=== PATIENT | female | born 1965 | race Caucasian/White ===

== ENCOUNTER 2021-06-10 01:35 | Day surgery (SDC) | payer OTHER, SELFPAY ==
[2021-06-03 14:49] VITALS: BMI 26.5
[2021-06-10 07:32] VITALS: BP 130/8; PULSE 80; RESP 18; TEMP 36.1; O2SAT 100; BMI 26.8
[2021-06-10] MEDS: LACTATED RINGERS 1,000 ML 150 ML IV CONT (07:50)
--- NOTE | 2021-06-10 08:16 | P.PNAN_ITS ---
Anes - Initial Pre Proc Eval Procedure: Operation Date: 06/10/21 08:30 Proposed Procedures p Colonoscopy - Mukul Esparza MD Date/Time: 06/10/21 08:16 Surgeon: Mukul Esparza MD Pre Op Diagnosis: tortuous colon Patient Data Age: 55 Gender: F Height: 1.78 m Weight: 84.8 kg Last Vital Signs Temp 36.1 C L 06/10/21 07:32 Pulse 80 06/10/21 07:32 Resp 18 06/10/21 07:32 BP 130/8 L 06/10/21 07:32 Pulse Ox 100 06/10/21 07:32 Allergies Allergy/AdvReac Type Severity Reaction Status Date / Time morphine Allergy Hives Verified 06/10/21 07:38 Penicillins Allergy Rash Verified 06/10/21 07:38 Home Medications Medication Instructions Recorded Confirmed Type Adults Multivitamin 1 tablet PO DAILY 06/03/21 06/10/21 History estradiol 1 mg PO DAILY 06/03/21 06/10/21 History levothyroxine 25 mcg PO DAILY 06/03/21 06/10/21 History Patient hx anesthesia problems: none Family hx anesthesia problems: none Results Review: All pre-operative results and documents have been reviewed as part of the pre-operative evaluation. FORMERLY [facility] Past Medical History Medical History Hypothyroid Ovarian cancer Social History Social History Smoking status: Never smoker Alcohol intake: current Drinks per week: 3 Substance use type: does not use Living arrangements: with family Spiritual care concerns: No Anes - Eval Final PreProcedure Day of Procedure 06/10/21 08:16 Patient weight: normal Heart: regular rate and rhythm Lungs: clear to auscultation Airway: Mallampati scale class 1 Neurological: alert and oriented Last oral intake: >/= 8 hours ASA classification: II Emergent: no Anesthetic plan: proceed Anesthesia type and monitoring: general GIVS and standard monitoring Results Review: All pre-operative results and documents have been reviewed as part of the pre-operative evaluation. Informed Consent: The patient's anesthetic plan and its attendant risks and benefits were discussed with the patient/family/POA. Questions were solicited and answers provided to the satisfaction of the patient/family/POA.
--- NOTE | 2021-06-10 08:20 | PM.HPGS ---
History of Present Illness History of Present Illness Consent: Risks, benefits, and alternatives have been discussed and questions answered. Patient agrees to proceed with procedure. Chief complaint: tortuous colon Narrative: Amanda Green is a 55 year old female here for screening colonoscopy, she was getting colonoscopies every 5 years because previous polyp, last colonoscopy in 2019 with poor prep, also tortuous colon in rectosigmoid anastomosis (she had partial colon resection when had ovarian cancer ~ 20 years ago), she was advised by her GI doctor to repeat another colonoscopy in 1 year. Review of Systems Constitutional: Constitutional: Denies headache(s) and Denies weakness Eyes: Eyes: Denies blurry vision ENT: Reports Normal hearing present, Denies headache(s) and Denies neck pain Cardiovascular: Cardiovascular: Denies chest pain and Denies dyspnea Respiratory: Respiratory: Denies dyspnea Gastrointestinal: Gastrointestinal: Reports no additional gastrointestinal complaints Genitourinary: Genitourinary: Denies dysuria Musculoskeletal: Musculoskeletal: Denies neck pain Integumentary/Breasts: Skin/Breast: Denies dry skin Neurologic: Reports Normal hearing present, Denies headache(s) and Denies weakness Psychiatric: Psychiatric: Denies anxiety Endocrine: Endocrine: Denies change in body appearance Hematologic/Lymphatic: Hematologic/Lymphatic: Denies easy bleeding Allergic/Immunologic: Allergic/Immunologic: Denies urticaria PMFSH Past Medical History Medical History (Updated 06/10/21 @ 08:21 by Mukul Esparza MD) Colon cancer screening Hypothyroid Ovarian cancer Social History Social History Smoking status: Never smoker Alcohol intake: current Drinks per week: 3 Substance use type: does not use Living arrangements: with family Spiritual care concerns: No Meds Home Medications and Allergies Home Medications Medication Instructions Recorded Confirmed Type Adults Multivitamin 1 tablet PO DAILY 06/03/21 06/10/21 History estradiol 1 mg PO DAILY 06/03/21 06/10/21 History levothyroxine 25 mcg PO DAILY 06/03/21 06/10/21 History Allergies Allergy/AdvReac Type Severity Reaction Status Date / Time morphine Allergy Hives Verified 06/10/21 07:38 Penicillins Allergy Rash Verified 06/10/21 07:38 Vital Signs Vital Signs - 24 hr 06/10/21 07:32 Temperature 97.0 F L Pulse Rate 80 Respiratory Rate 18 Blood Pressure 130/8 L Pulse Oximetry 100 Exam Const: General: comfortable and no acute distress HENMT: General nose exam: Normal nares present Eyes: General: appearance normal, both eyes and all related structures Neck: Neck: no JVD Resp: Auscultation: clear to auscultation bilaterally Cardio: Rate: regular rate Rhythm: regular rhythm GI: Inspection: non-distended GI Palp: Yes Soft to palpation Skin: General skin exam: normal color Neuro: General: gait normal Speech: normal speech Extrem: General: normal to inspection Psych: Mental Status: mental status grossly normal Assessment and Plan Assessment and plan (1) Colon cancer screening: Code(s): Z12.11 - Encounter for screening for malignant neoplasm of colon Status: Acute Assessment and Plan: colonoscopy
[2021-06-10 08:45] VITALS: BP 109/56; PULSE 79; RESP 17; O2SAT 100
[2021-06-10 08:55] VITALS: BP 118/78; PULSE 62; RESP 15; O2SAT 100
[2021-06-10 09:05] VITALS: BP 120/84; PULSE 61; RESP 12; O2SAT 100
== END 2021-06-10 09:15 | disposition home or self-care (01) ==
PROVIDERS: PCP Internal Medicine; Visit Provider Internal Medicine Gastroenterology
PROC: 0DJD8ZZ Inspection of Lower Intestinal Tract, Via Natural or Artificial Opening Endoscopic (ICD-10-PCS; CPT 45378; principal; 2021-06-10 08:30)
DX: Z09 Encounter for follow-up examination after completed treatment for conditions other than malignant neoplasm (principal); K64.8 Other hemorrhoids; Z98.0 Intestinal bypass and anastomosis status; Z90.49 Acquired absence of other specified parts of digestive tract; Z85.43 Personal history of malignant neoplasm of ovary; Z86.010 Personal history of colon polyps; E03.9 Hypothyroidism, unspecified
CPT/HCPCS: 45378; J2704; J7120

== ENCOUNTER → 2021-07-16 11:19 | Outpatient (CLI) | payer OTHER, SELFPAY ==
--- NOTE | ~2021-07-16 | MM_ITS ---
EXAMINATION: MM screening eliza BI w kostas HISTORY: Screening TECHNIQUE: Craniocaudal and mediolateral oblique 3-D tomosynthesis images were obtained and synthetic 2-D images were generated. CAD analysis was submitted and interpreted. COMPARISON: No prior mammogram is available for comparison at this institution. BREAST PARENCHYMAL COMPOSITION: The breasts are almost entirely fatty. FINDINGS: There is no evidence of suspicious mass, calcification, or architectural distortion to sugg est malignancy in either breast. There has been no suspicious interval change. IMPRESSION: 1. No mammographic evidence of malignancy. 2. Recommend routine screening mammography in one year. BI-RADS Category 1: Negative Reviewed, dictated and finalized at location [facility]. [employer]
== END ==
PROVIDERS: PCP Internal Medicine; Visit Provider Internal Medicine
DX: Z12.31 Encounter for screening mammogram for malignant neoplasm of breast (principal)
CPT/HCPCS: 77063; 77067

== ENCOUNTER 2022-08-19 08:39 | Emergency (ER) | payer OTHER, SELFPAY ==
[2022-08-19 08:59] VITALS: BP 130/87; PULSE 71; RESP 16; TEMP 36.6; O2SAT 100
--- NOTE | 2022-08-19 09:16 | ED.FEMALEGU ---
HPI - Female Genitourinary General Chief complaint: Urogenital-Female Stated complaint: BLOOD IN URINE Time Seen by Provider: 08/19/22 09:16 Source: patient, RN notes reviewed and old records reviewed Mode of arrival: ambulatory Limitations: no limitations History of Present Illness HPI Narrative: 56 year old female who presents to [facility] care with complaints of urinary tract infection symptoms which include frequency,urgency, burning and pain with urination since with also blood noted in her urine. Patient reports some suprapubic pain and pain with urination and burning. Patient reports that she completed Macrobid recently the last of July for UTI. Patient denies any vaginal discharge or any vaginal itching. Patient denies any concern for STD's MD elicited complaint: UTI Pertinent past history: other (UTI) Onset (ago): day(s) (3) Severity scale (1-10): 8 Quality of pain: sharp and burning Urinary symptoms: Dysuria, Urgency, Frequency and Hematuria Related Data Home Medications Medication Instructions Recorded Confirmed Adults Multivitamin 1 tablet PO DAILY 06/03/21 08/19/22 estradiol 1 mg tablet 1 mg PO DAILY 06/03/21 08/19/22 levothyroxine 25 mcg tablet 25 mcg PO DAILY 06/03/21 08/19/22 Allergies Allergy/AdvReac Type Severity Reaction Status Date / Time morphine Allergy Hives Verified 08/19/22 08:57 Penicillins Allergy Rash Verified 08/19/22 08:57 Review of Systems Review of Systems: CONSTITUTIONAL: Denies fever, chills, or sweats. CARDIOVASCULAR: Denies chest pain, palpitations, or edema. RESPIRATORY: Denies cough or dyspnea. GASTROINTESTINAL:Reports suprapubic abdominal discomfort, denies, nausea, vomiting, or diarrhea. GENITOURINARY: Reports dysuria, frequency, urgency Denies flank pain positive for hematuria. SKIN: Denies rash or itching. MUSCULOSKELETAL: Denies back pain or myalgia. Denies CVA tenderness NEUROLOGIC: Denies headache All systems reviewed & are unremarkable except as noted in HPI and below PMFSH Past Medical History Medical History (Updated 08/20/22 @ 19:15 by Fior Gaitan NP) Colon cancer screening Hypothyroid Ovarian cancer UTI (urinary tract infection) Surgical History Surgical History (Updated 08/20/22 @ 19:11 by Fior Gaitan NP) History of hysterectomy History of intestinal surgery colectomy related to ovarian cancer adhesions and tortuous colon Social History Social History (Updated 08/19/22 @ 09:20 by Fior Gaitan NP) Smoking status: Never smoker Alcohol intake: current Drinks per week: 3 Substance use type: does not use Living arrangements: with family Gender identity (if verbalized by the patient): Female Spiritual care concerns: No Comments At time of signature, agree with nursing past medical, surgical, social and family history. There is no relevant family history pertinent to the presenting complaint Exam Narrative: GENERAL: Well-appearing, well-nourished, and in no acute distress. HEAD: Normocephalic, atraumatic. NECK: Supple. no lymphadenopathy CHEST: Clear to auscultation. No respiratory distress.SAO2 100% on room air HEART: Regular rate and rhythm. No murmur heard. Normal peripheral pulses. ABDOMEN: Soft, tender over suprapubic area, nondistended, normal active bowel sounds. No CVA tenderness, burning and pain with urination, urgency and frequency of urine. EXTREMITIES: Normal range of motion. No edema. SKIN: Warm, dry, no rash. NEURO: No focal deficits. Alert and oriented x3. Course Course Emergency Course: Patient is aware of diagnosis, understands and agrees to treatment plan.? Anticipatory guidance given.? Patient agrees to follow-up as directed and is aware of reasons to seek care at the emergency department. Portions of this record may have been created with voice recognition software Level of Care: Express Care Visit Vital Signs Vital signs: Vital Signs Temperature 36.6 C 08/19/22 08:59 Pulse R
== END 2022-08-19 09:36 | disposition home or self-care (01) ==
PROVIDERS: Emergency Provider Registered Nurse; PCP Internal Medicine
DX: N39.0 Urinary tract infection, site not specified (principal); E03.9 Hypothyroidism, unspecified; Z85.43 Personal history of malignant neoplasm of ovary
CPT/HCPCS: 81003; 87077; 87086; 87186; 99213; G0463

== ENCOUNTER 2022-08-24 13:19 | Emergency (ER) | payer OTHER, SELFPAY ==
--- NOTE | 2022-08-24 13:32 | ED.CHESTPAIN ---
HPI - Chest Pain General Chief Complaint: Arrhythmia/Palpitations Stated Complaint: UTI SYMPTOMS Time Seen by Provider: 08/24/22 13:35 Source: patient Mode of arrival: ambulatory Limitations: no limitations History of Present Illness HPI narrative: 56-year-old female with hx ovarian cancer presented for complaint of heart racing, fatigue, headache, feeling hot and nauseated. Onset last night. Symptoms were worse this morning, she left work and went home to take a nap. Denies sob, wheezing, vomiting. Patient is currently completing Bactrim for UTI. States urinary symptoms are improved. Related Data Home Medications Medication Instructions Recorded Confirmed Adults Multivitamin 1 tablet PO DAILY 06/03/21 08/19/22 estradiol 1 mg tablet 1 mg PO DAILY 06/03/21 08/19/22 levothyroxine 25 mcg tablet 25 mcg PO DAILY 06/03/21 08/19/22 Allergies Allergy/AdvReac Type Severity Reaction Status Date / Time morphine Allergy Hives Verified 08/24/22 14:10 Penicillins Allergy Rash Verified 08/24/22 14:10 Review of Systems Review of Systems: CONSTITUTIONAL: Endorses fatigue and fever; Denies body aches EYES: Denies visual changes, redness, or discharge. ENT: Denies rhinorrhea, congestion, sore throat, or otalgia. CARDIOVASCULAR: Reports palpitations Denies chest pain or edema. RESPIRATORY: Denies cough or dyspnea. GASTROINTESTINAL: Denies abdominal pain, vomiting, or diarrhea. GENITOURINARY: Denies dysuria or hematuria. SKIN: Denies rash, itching, or wounds. MUSCULOSKELETAL: Denies back pain, joint pain, or myalgia. NEUROLOGIC: Denies numbness, tingling, or weakness. All systems reviewed & are unremarkable except as noted in HPI and below PMFSH Past Medical History Medical History Colon cancer screening Hypothyroid Ovarian cancer UTI (urinary tract infection) Surgical History Surgical History History of hysterectomy History of intestinal surgery colectomy related to ovarian cancer adhesions and tortuous colon Social History Social History Smoking status: Never smoker Alcohol intake: current Drinks per week: 3 Substance use type: does not use Living arrangements: with family Gender identity (if verbalized by the patient): Female Spiritual care concerns: No Comments At time of signature, I have reviewed and agree with nursing past medical, surgical, social and family history unless otherwise noted. Please see nursing chart for further information. There is no relevant family history pertinent to the presenting complaint Exam Narrative: GENERAL: mildly ill-appearing, in no acute distress. EYES: EOMI. No redness or drainage. Conjunctivae normal. ENT: Mucous membranes pink and moist. No rhinorrhea. TMs normal bilaterally. Throat normal. Uvula midline. NECK: Normal AROM. Supple. No lymphadenopathy. CHEST: No respiratory distress. Clear to auscultation. HEART: Tachycardic, Regularly irregular. No murmur appreciated. ABDOMEN: Soft, nontender, nondistended, normal active bowel sounds. MUSCULOSKELETAL: No bony tenderness. EXTREMITIES: Normal range of motion. No edema. SKIN: Hot, dry, no rash. Capillary refill normal. Normal skin turgor. NEURO: No focal deficits. Alert and oriented x3. Gait steady. PSYCH: Normal affect. Course Course Emergency Course: Patient is aware of diagnosis, understands and agrees to treatment plan. Anticipatory guidance given. Portions of this record may have been created with voice recognition software Level of Care: Express Care Visit Vital Signs Vital signs: Vital Signs Temperature 99.4 F 08/24/22 13:39 Pulse Rate 169 H 08/24/22 13:39 Respiratory Rate 16 08/24/22 13:39 Blood Pressure 114/89 08/24/22 13:39 Pulse Oximetry 99 08/24/22 13:39 Temperature 99.4 F 08/24/22 1
--- NOTE | 2022-08-24 13:38 | ECG_ITS ---
Measurements Intervals [place] Rate: 166 P: 193 UT: 84 QRS: -66 QRSD: 103 T: 57 QT: 294 QTc: 490 Interpretive Statements SUPRAVENTRICULAR TACHYCARDIA LEFT ANTERIOR FASCICULAR BLOCK NONSPECIFIC ST ABNORMALITY ABNORMAL ECG COMPARED TO ECG 08/24/2022 14:07:13 NO SIGNIFICANT CHANGE Electronically Signed On 08-25-2022 16:28:05 CDT by Prakash Vidal M.D.
[2022-08-24 13:39] VITALS: BP 114/89; PULSE 169; RESP 16; TEMP 37.4; O2SAT 99
[2022-08-24 13:45] VITALS: BP 139/97; PULSE 167; RESP 20
[2022-08-24 13:55] VITALS: BP 117/88; PULSE 184; RESP 16; O2SAT 97
[2022-08-24 13:58] VITALS: BP 122/95; PULSE 184; RESP 16; O2SAT 96
--- NOTE | 2022-08-24 14:09 | ECG_ITS ---
Measurements Intervals [place] Rate: 158 P: [place]: 0 QRS: -53 QRSD: 104 T: 49 QT: 318 QTc: 516 Interpretive Statements SUPRAVENTRICULAR TACHYCARDIA CONSIDER ATRIAL FLUTTER BASELINE ARTIFACT LEFT ANTERIOR FASCICULAR BLOCK NONSPECIFIC ST ABNORMALITY LOW-VOLTAGE QRS IN PRECORDIAL LEADS ABNORMAL ECG NO PREVIOUS ECG AVAILABLE FOR COMPARISON Electronically Signed On 08-25-2022 16:26:35 CDT by Prakash Vidal M.D.
== END 2022-08-24 14:08 | disposition short-term general hospital (02) ==
PROVIDERS: Emergency Provider Nurse Practitioner Family; PCP Internal Medicine
DX: I49.9 Cardiac arrhythmia, unspecified (principal); E03.9 Hypothyroidism, unspecified; Z85.43 Personal history of malignant neoplasm of ovary; I44.4 Left anterior fascicular block
CPT/HCPCS: 93005; 99213; G0463

== ENCOUNTER 2022-08-24 14:30 | Observation (INO) | payer OTHER, SELFPAY ==
[2022-08-24] VITALS (28 sets, daily range): BP systolic 101–131; BP diastolic 63–94; PULSE 74–168; RESP 13–20; TEMP 37.2–37.7; O2SAT 94–100
--- NOTE | ~2022-08-24 | XR_ITS ---
EXAMINATION: XR chest 1V portable 08/24/2022 15:15 INDICATION: Chest palpitations PROCEDURE: AP portable chest COMPARISON: No prior studies for comparison. FINDINGS: The lungs are clear. The cardiomediastinal silhouette is within normal limits. There are no pleural effusions. There is no pneumothorax suspected. IMPRESSION: 1: NO ACUTE CARDIOPULMONARY DISEASE. Reviewed, dictated and finalized at location L.
--- NOTE | ~2022-08-24 | CT_ITS ---
EXAMINATION: CT abdomen pelvis w con INDICATION: Abdominal pain TECHNIQUE: Computed tomographic images of the abdomen and pelvis were obtained after the administrati on of 100 cc of Omnipaque 350 intravenous contrast. The dose-length product (DLP) was 783.86 mGy-cm. Automated exposure control and iterative reconstruction technique were employed. COMPARISON: None available FINDINGS: Minimal dependent atelectasis is present in the lung bases. The heart size is normal. The g allbladder is surgically absent. The liver, spleen, pancreas, and adrenal glands are normal. The kidn eys are unremarkable. There are changes of pelvic lymph node dissection. A surgical anastomosis is pr esent in the rectum. No free intraperitoneal gas or evidence of bowel obstruction. A large volume of colonic stool is present. There is moderate to severe spondylosis of the mid and lower lumbar spine. IMPRESSION: 1. Constipation. Reviewed, dictated and finalized at location F. IMPRESSION: 1. Constipation.
--- NOTE | 2022-08-24 14:41 | ED.ARRPALP ---
HPI - Arrhythmia/Palpitations General Chief Complaint: Arrhythmia/Palpitations Stated Complaint: SVT FROM [facility] Time Seen by Provider: 08/24/22 14:31 Source: patient Mode of arrival: ambulatory Limitations: no limitations History of Present Illness HPI narrative: Patient is a 56-year-old female with a history of ovarian cancer in remission, status post colon resection, hypothyroidism, recurrent urinary tract infections presenting to the emergency department for evaluation of palpitations, nausea, rapid heart rate. Patient initially presented to an urgent care over the weekend for dysuria, frequency and was diagnosed with a urinary tract infection and placed on oral Bactrim. Patient has been taking that medication, last night continued with fever, chills, nausea. She reports resolution of dysuria. She states that she was having palpitations today thus presented back to the urgent care where she was diagnosed with atrial fibrillation with rapid ventricular response and EMS was contacted to bring the patient to the emergency department. In route, it was noted by EMS that the patient was in a rhythm of supraventricular tachycardia the patient was given 6 mg of adenosine without resolution of her symptoms and then given 12 mg of adenosine with reported cardioversion. Patient reports current nausea but denies chest pain. No history of coronary artery disease, heart problems in the past. No history of arrhythmia. Patient denies any lightheadedness, dizziness, shortness of breath. Related Data Home Medications Medication Instructions Recorded Confirmed Adults Multivitamin 1 tablet PO DAILY 06/03/21 08/24/22 estradiol 1 mg tablet 1 mg PO DAILY 06/03/21 08/24/22 levothyroxine 25 mcg tablet 25 mcg PO DAILY 06/03/21 08/24/22 Allergies Allergy/AdvReac Type Severity Reaction Status Date / Time morphine Allergy Hives Verified 08/24/22 14:46 Penicillins Allergy Rash Verified 08/24/22 14:46 Review of Systems Review of Systems: CONSTITUTIONAL: Reports fever and chills EYES: Denies visual changes, redness, or discharge. ENT: Denies rhinorrhea, congestion, sore throat, or otalgia. CARDIOVASCULAR: Denies chest pain, reports intermittent palpitations, denies edema RESPIRATORY: Denies cough or dyspnea. GASTROINTESTINAL: Denies abdominal pain, reports nausea, denies vomiting GENITOURINARY: Reports dysuria has resolved SKIN: Denies rash or itching. MUSCULOSKELETAL: Denies back pain, joint pain, or myalgia. NEUROLOGIC: Denies headache, numbness, or weakness. PSYCHIATRIC: Denies anxiety or depression. [facility] Past Medical History Medical History Colon cancer screening Hypothyroid Ovarian cancer UTI (urinary tract infection) Surgical History Surgical History History of hysterectomy History of intestinal surgery colectomy related to ovarian cancer adhesions and tortuous colon Social History Social History Smoking status: Never smoker Alcohol intake: current Drinks per week: 3 Substance use type: does not use Living arrangements: with family Gender identity (if verbalized by the patient): Female Spiritual care concerns: No Exam Narrative: GENERAL: Awake, alert, conversant HEAD: Normocephalic, atraumatic. EYES: PERRLA and EOMI. ENT: Nares clear, no rhinorrhea or epistaxis. Mucous membranes moist. NECK: Supple. CHEST: No respiratory distress, breathing even and non labored HEART: Tachycardic, 160s, irregularly irregular, does seem consistent with atrial fibrillation, no ST segment elevation, mild ST segment depression throughout leads I, 2 ABDOMEN:Non distended, non tender EXTREMITIES: Normal range of motion. No edema. SKIN: Warm, dry, no rash. NEURO:No focal deficits. Alert and oriented x3 Course Vital Signs Vital signs: Vital Signs Pulse Rate 168
[2022-08-24] MEDS: SODIUM CHLORIDE 0.9% IV 1,000 ML 999 ML IV CONT (14:44)
[2022-08-24] MEDS: ONDANSETRON INJ 4 MG/2 ML VIAL IV PUSH (14:45)
--- NOTE | 2022-08-24 14:46 | ECG_ITS ---
Measurements Intervals [place] Rate: 185 P: [place]: 0 QRS: -37 QRSD: 93 T: 31 QT: 241 QTc: 424 Interpretive Statements SUPRAVENTRICULAR TACHYCARDIA LEFT AXIS DEVIATION PATTERN CONSISTENT WITH PULMONARY DISEASE NONSPECIFIC ST ABNORMALITY LOW-VOLTAGE QRS IN PRECORDIAL LEADS ABNORMAL ECG COMPARED TO ECG 08/24/2022 13:37:27 NO SIGNIFICANT CHANGE Electronically Signed On 08-25-2022 16:27:07 CDT by Prakash Vidal M.D.
[2022-08-24 15:08] LABS: Basophils Percent Auto 0.3 % (0.2-1.2); Eosinophils Absolute Auto 0.1 K/mm3 (0-0.3); Eosinophils Percent Auto 4.1 % (0-4.4); Hematocrit 38.5 % (37.0-47.0); Hemoglobin 12.9 g/dL (12.0-15.0); Immature Granulocyte Absolute 0.02 K/mm3 (0.00-0.031); Immature Granulocyte Percent A 0.6 % (0-0.5); Lymphocytes Absolute Auto 0.22 K/mm3 (0.9-3.2); Lymphocytes Percent Auto 6.9 % (18.3-44.2); Mean Corpuscular HGB Conc 33.5 g/dl (32-36); Mean Corpuscular Volume 80.7 fl (80-100); Mean Platelet Volume 10.3 fl (7.4-10.4); Monocytes Absolute Auto 0.2 K/mm3 (0.1-0.6); Monocytes Percent Auto 7.2 % (2.6-8.5); Neutrophils Absolute Auto 2.6 K/mm3 (1.3-6.7); Neutrophils Percent Auto 80.9 % (45.5-73.1); Platelet Count Result 140 k/mm3 (150-375); Red Blood Count 4.77 M/mm3 (4.2-5.4); Red Cell Distribution Width 13.1 % (11.5-14.5); White Blood Count 3.2 K/mm3 (4.5-10.0)
[2022-08-24 15:17] LABS: Lactic Acid Reflex 0.9 mmol/L (0.7-2.0)
[2022-08-24 15:20] LABS: Alanine Aminotransferase 77 U/L (6-35); Alkaline Phosphatase 144 U/L (38-126); Anion Gap 8 mmol/L (8-16); Aspartate Amino Transferase 95 U/L (14-36); Bilirubin,Total 0.8 mg/dL (0.2-1.3); Blood Urea Nitrogen 12 mg/dL (7-17); Calcium 8.1 mg/dL (8.4-10.2); Carbon Dioxide 25 mmol/L (22-30); Chloride 94 mmol/L (98-107); Estimated CRCL calculation 65 ml/min; Estimated Glomerular Filt Rate > 60; Glucose 127 mg/dL (65-110); Potassium 3.7 mmol/L (3.4-5.0); Sodium 127 mmol/L (137-145)
[2022-08-24 15:37] LABS: NT Pro B Type Natriuretic Pept 284 pg/mL (19.9-100); Troponin I < 0.012 ng/mL (0.000-0.034)
[2022-08-24 15:55] LABS: Thyroid Stimulating Hormone 0.222 uIU/mL (0.465-4.680)
--- NOTE | 2022-08-24 17:53 | ECG_ITS ---
Measurements Intervals [place] Rate: 76 P: 16 [place]: 164 QRS: -30 QRSD: 109 T: 20 QT: 403 QTc: 454 Interpretive Statements SINUS RHYTHM LOW QRS VOLTAGE IN PRECORDIAL LEADS NONSPECIFIC ST ABNORMALITY BORDERLINE ECG COMPARED TO ECG 08/24/2022 14:35:16 SINUS RHYTHM NOW PRESENT Electronically Signed On 08-25-2022 16:35:22 CDT by Prakash Vidal M.D.
--- NOTE | 2022-08-24 18:28 | ECG_ITS ---
Measurements Intervals [place] Rate: 76 P: 16 [place]: 164 QRS: -30 QRSD: 109 T: 20 QT: 403 QTc: 454 Interpretive Statements SINUS RHYTHM LOW QRS VOLTAGE IN PRECORDIAL LEADS NONSPECIFIC ST ABNORMALITY BORDERLINE ECG COMPARED TO ECG 08/24/2022 14:35:16 SINUS RHYTHM NOW PRESENT Electronically Signed On 08-25-2022 16:35:03 CDT by Prakash Vidal M.D.
[2022-08-24 18:29] LABS: Appearance Urine Clear (Clear); Bilirubin Urine Negative (Negative); Blood Urine Negative (Negative); Color Urine Yellow (Yellow); Glucose Urine UA Negative (Negative); Ketones Urine 1+ mg/dL (Negative); Leukocyte Esterase Ur Negative LEU/UL (Negative); Nitrate Urine Negative (Negative); Protein Urine Negative (Negative); Specific Grav Ur 1.016 (1.001-1.035)
[2022-08-24 18:47] LABS: Add Urine Microscopic? NO
--- NOTE | 2022-08-24 20:19 | PM.IMHP ---
H&P: HPI History of Present Illness Date/Time: 08/24/22 20:19 Chief Complaint: Chest pressure Narrative: 56-year-old female with a past medical history of postmenopausal state, hypothyroidism and recent diagnosis of UTI who presented to the ER from urgent care via EMS due to SVT. The patient reports that back in July she was treated for UTI. She does not know what antibiotic she was placed on but on review of external med rec the appears patient was placed on nitrofurantoin. Her symptoms had resolved but then recurred and she went to urgent care on 08/19/2022. She was having symptoms with suprapubic pain, dysuria, frequency, urgency and hematuria. She was discharged home on Bactrim which she has been taking faithfully. She reported that her symptoms had improved until today. When she woke up in got out of bed she noticed that she was tachycardic and felt lightheaded and flushed. She was also having some mid dizziness. She went to work and decided to come home because she felt ill which is unusual for her. The her insisted that she go back to urgent care to be evaluated. When she arrived at the urgent care the patient was heart rate was in the 160s to 180s. EMS was called to bring her to the ER and EN route to the ER the patient's heart rate went up to 185 in appear to be more consistent with SVT instead of atrial fibrillation. The patient received 6 mg of adenosine followed by 12 mg. She converted to sinus tachycardia with a heart rate of 110 for EMS. While in the ER she did become tachycardic again but before they could administer any more medications the patient converted back to sinus rhythm on her own. The patient was noted to have a temperature of 99.8 in the ER. She denies ever having any symptoms like this before denies a history of irregular fast heart rate. She stated that when her heart rate was fast she did feel pressure-like sensation in her chest. She has had decreased appetite today and has been mildly nauseated. She reported that prior to today low she was drinking her usual 3-4 L of water. Labs in the ER were significant for hyponatremia with patient's last sodium obtained from her my chart from outside facility being 142. However she has been told in the past that she needs to eat snacks with salt in them. She also was noted to have some leukopenia and her platelet count was [id number]. She states that recently her estradiol dose was decreased. She does have a history of hypothyroidism and states that her thyroid dose is been the same for many years she is on 25 mcg a day. Her TSH in the ER was 0.222 but her TSH on outside labs from April was 1.9 (on a comparable scale). She reports complete resolution of her urinary tract symptoms in her UA in the ER was unremarkable except for 1+ ketones. In the ER she received IV Tylenol, Rocephin, and Zofran and 1 L of fluid bolus. The patient reports that her symptoms have improved. She denies a history of liver disease or elevated transaminitis. In the ER her transaminases were elevated. Review of her external records demonstrates normal LFTs previous. She does drink 2-3 alcoholic beverages each weekend. Source of information includes external medical records, ER report, and the report from the patient and her are at bedside. The patient's case was discussed with the patient and her with the patient's permission. Review of Systems Review of Systems: 12 systems were reviewed with pertinent positives and negatives per HPI. Except as documented in the HPI, all other systems were reviewed and are negative. [facility] Past Medical History Medical History Colon cancer screening Hypothyroidism Ovarian cancer (~2000) UTI (urinary tract infection) Surgical History Surgical History (Updated 08/24/22 @ 23:12 by Evelyn Dykes DO) History of intestinal surgery colectomy related to ovarian cancer adhesions and tor
[2022-08-24 21:05] LABS: Influenza A QL RT-PCR Negative (Negative); Influenza B QL RT-PCR Negative (Negative); RSV RNA, RT-PCR Negative (Negative); SARS-CoV-2 RNA PCR Negative
--- NOTE | 2022-08-24 23:41 | ADMGEN ---
This patient, Amanda Green, was admitted to Medical Room 349-01. Patient/family oriented to hospital policies and general routines including ID bracelet, bed and alarms, visiting hours, pain management, procedures, bathroom and other care routines, personal items, smoking policy, room service/diet, and visiting hours. Information on how to activate the Rapid Response Team has been discussed. Patient/Family are encouraged to report perceived risks to care and to ask questions if they do not understand what they are told or what they should do.
[2022-08-24] MEDS: SODIUM CHLORIDE 0.9% IV 1,000 ML 100 ML IV CONT (23:59)
[2022-08-25] VITALS (10 sets, daily range): BP systolic 91–125; BP diastolic 57–85; PULSE 70–99; RESP 16–20; TEMP 36.7–37.2; O2SAT 97–99
--- NOTE | 2022-08-25 | ECHO_ITS ---
Patient Info Name: Amanda Green Age: 56 years : 1965 Gender: Female Ht: 70 in Wt: 184 lbs BSA: 2.04 m2 HR: 97 bpm BP: 125 / 85 mmHg Technical Quality: Fair Exam Date: 08/25/2022 1:58 PM Exam Location: [facility] Pulmonary Exam Room: 349 Patient Status: Inpatient Admit Date: 08/24/2022 Staff Ordering Physician: Brennen Douglass Plumbing Contractor: Kanchan Mayberry RDCS Attending Provider: Evelyn Dykes DO Referring Physician: Rafat MELO; Exam Type: CA echo doppler w bubble study Study Info Indications - SVT Complete two-dimensional, color flow and Doppler transthoracic echocardiogram is performed with agitated saline. Contrast/Agitated Saline Contrast/Ag. Saline: Agitated Saline Amount: 20.00 ml Administered By: Kanchan Mayberry [facility] Existing IV Access: Yes IV Access Condition: patent with no signs of infiltration Summary 1. Left ventricular chamber dimension is normal. 2. Left ventricular systolic function is normal, estimated at 60-65%. 3. The left ventricular diastolic function is grade I diastolic dysfunction. 4. E/e' 5 is not elevated. 5. There is trace tricuspid valve regurgitation. 6. Mild pulmonary hypertension, estimated pulmonary arterial systolic pressure is 43 mmHg. 7. There is trace pulmonic regurgitation. Left Ventricle E/e' 5 is not elevated. Left ventricular chamber dimension is normal. Left ventricular systolic function is normal, estimated at 60-65%. The left ventricular diastolic function is grade I diastolic dysfunction. Right Ventricle Right ventricular systolic function is normal and with normal TAPSE 2.4 cm. Right ventricular chamber dimension is normal. Left Atria Left atrial chamber dimension is normal. Right Atria Right atrial chamber dimension is normal. Atrial Septum Agitated saline injection with and without valsalva maneuver opacified right side cardiac chambers without shunt to left side cardiac chambers. Intact interatrial septum visualized by 2D and agitated saline imaging. Aortic Valve The aortic valve is trileaflet. There is no aortic valve stenosis. There is no aortic valve regurgitation. Pulmonic Valve There is trace pulmonic regurgitation. Mitral Valve There is no mitral valve stenosis. There is no mitral valve regurgitation. Tricuspid Valve There is trace tricuspid valve regurgitation. Mild pulmonary hypertension, estimated pulmonary arterial systolic pressure is 43 mmHg. Pericardium/Pleural There is no pericardial effusion. Inferior Vena Cava Normal inferior vena cava with >50% collapse upon inspiration consistent with normal right atrial pressure, 5 mmHg. Aorta The aortic root size at the sinus of Valsalva is normal. Left Ventricular Outflow Tract Name Value Normal LVOT 2D LVOT Diameter 2.0 cm LVOT Doppler LVOT Peak Gradient 4 mmHg LVOT Mean Gradient 3 mmHg LVOT VTI 20 cm LVOT VTI/AV VTI Ratio 0.7 LVOT Stroke Volu
[2022-08-25 01:47] LABS: Sodium 132 mmol/L (137-145)
[2022-08-25 05:12] LABS: Creatinine Urine 83.1 mg/dL
[2022-08-25 05:13] LABS: Sodium Urine Random 110 meq/L
[2022-08-25 05:21] LABS: Total Triiodothyronine (T3) 0.77 NG/ML (0.97-1.69)
[2022-08-25 05:55] LABS: Basophils Percent Auto 0.6 % (0.2-1.2); Eosinophils Absolute Auto 0.1 K/mm3 (0-0.3); Eosinophils Percent Auto 6.4 % (0-4.4); Hematocrit 35.3 % (37.0-47.0); Hemoglobin 11.8 g/dL (12.0-15.0); Immature Granulocyte Absolute 0.01 K/mm3 (0.00-0.031); Immature Granulocyte Percent A 0.6 % (0-0.5); Lymphocytes Absolute Auto 0.34 K/mm3 (0.9-3.2); Lymphocytes Percent Auto 19.9 % (18.3-44.2); Mean Corpuscular HGB Conc 33.4 g/dl (32-36); Mean Corpuscular Hemoglobin 27.2 pg (26-34); Mean Corpuscular Volume 81.3 fl (80-100); Mean Platelet Volume 10.4 fl (7.4-10.4); Monocytes Absolute Auto 0.2 K/mm3 (0.1-0.6); Monocytes Percent Auto 9.4 % (2.6-8.5); Neutrophils Absolute Auto 1.1 K/mm3 (1.3-6.7); Neutrophils Percent Auto 63.1 % (45.5-73.1); Platelet Count Result 129 k/mm3 (150-375); Red Blood Count 4.34 M/mm3 (4.2-5.4); Red Cell Distribution Width 13.1 % (11.5-14.5)
[2022-08-25 06:03] LABS: Alanine Aminotransferase 71 U/L (6-35); Albumin Level 3.4 g/dL (3.5-5.1); Alkaline Phosphatase 128 U/L (38-126); Anion Gap 5 mmol/L (8-16); Aspartate Amino Transferase 77 U/L (14-36); Bilirubin,Total 0.6 mg/dL (0.2-1.3); Blood Urea Nitrogen 10 mg/dL (7-17); Calcium 7.6 mg/dL (8.4-10.2); Carbon Dioxide 24 mmol/L (22-30); Chloride 101 mmol/L (98-107); Estimated CRCL calculation 73 ml/min; Estimated Glomerular Filt Rate > 60; Glucose 108 mg/dL (65-110); Magnesium 1.8 mg/dL (1.6-2.3); Phosphorus 2.9 mg/dL (2.5-4.5); Potassium 3.5 mmol/L (3.4-5.0); Sodium 130 mmol/L (137-145)
[2022-08-25 06:55] LABS: White Blood Count 1.7 K/mm3 (4.5-10.0)
[2022-08-25 07:23] LABS: Atypical Lymphocytes Present; Platelet Estimate Decreased (Adequate); Schistocytes None Seen (NORMAL)
--- NOTE | 2022-08-25 09:15 | P.PNIM_ITS ---
Progress Note: A&P Assessment and Plan (1) Supraventricular tachycardia: Code(s): I47.1 - Supraventricular tachycardia Status: Acute Assessment and Plan: * Presented to the ED with complaints of HR in 160-180 * Given adenosine x 2 doses in the field * HR returned to SR prior to arrival * Did have one other episode of SVT, converted herself * Tele monitor * Trend Heart rate * Stable at this time * Echo ordered (2) Fever: Code(s): R50.9 - Fever, unspecified Status: Acute Assessment and Plan: * Temp has been running around 99.0 degrees F * Very mild * No source of infection * Continue to trend * PRN tylenol (3) Hyponatremia: Code(s): E87.1 - Hypo-osmolality and hyponatremia Status: Acute Assessment and Plan: * Na was 125 upon arrival * Current sodium is 130 * Could be related to water intoxication * Continue to trend labs (4) Leukopenia: Qualifiers: Leukopenia type: lymphocytopenia Qualified Code(s): D72.810 - Lymphocytopenia Code(s): D72.819 - Decreased white blood cell count, unspecified Status: Acute Assessment and Plan: * Current WBC 1.7 * Continue to trend * Could be related to supratherapeutic thyroid * Received ceftriaxone in the ED (5) Transaminitis: Code(s): R74.01 - Elevation of levels of liver transaminase levels Status: Acute Assessment and Plan: * Liver enzymes elevated * trending down * Could be related to thyroid * Continue to trend * Consider hep panel * Consider RUQ ultrasound (6) Urinary tract infection due to Proteus: Code(s): N39.0 - Urinary tract infection, site not specified; B96.4 - Proteus (mirabilis) (morganii) as the cause of diseases classified elsewhere Status: Acute Assessment and Plan: * Was treated with Bactrim * Susceptibilities does show Bactrim * Probably treated * Currently on ceftriaxone * Can probably stop since she is not having any further symptioms. (7) Hypothyroidism: Code(s): E03.9 - Hypothyroidism, unspecified Status: Acute Assessment and Plan: * TSH 0.222, T3 0.77, T4 0.99 * Continue to hold levothyroxine for now * Have patient get repeat in 2 weeks * Adjust therapy as indicated * Repeat labs in the am Plan Spoke with Dr. Leon about patient and chart was further reviewed Time Spent With Patient Time: 51 mintues Time with patient: Greater than 35 minutes Subjective Date/time seen: 08/25/22914 Interval history: 08/25/22914 patient was resting comfortably in bed. She denies any current chest pain, shortness a breath, nausea, vomiting, diarrhea or constipation. She also denies any current palpitations or any acute events overnight. She does state that she is lightheaded and dizzy and weak. She is wanting to go home however review the case with my attending who suggested repeating labs in a.m. and obtain an echo. Family was present and all questions were answered plan of care was updated. 08/24/22? 20:19 56-year-old female with a past medical history of postmenopausal state, hypothyroidism and recent diagnosis of UTI who presented to the ER from urgent care via EMS due to SVT.? The patient reports that back in July
--- NOTE | 2022-08-25 09:15 | PM.IMPN ---
Progress Note: A&P Assessment and Plan (1) Supraventricular tachycardia: Code(s): I47.1 - Supraventricular tachycardia Status: Acute Assessment and Plan: Presented to the ED with complaints of HR in 160-180 Given adenosine x 2 doses in the field HR returned to SR prior to arrival Did have one other episode of SVT, converted herself Tele monitor Trend Heart rate Stable at this time Echo ordered (2) Fever: Code(s): R50.9 - Fever, unspecified Status: Acute Assessment and Plan: Temp has been running around 99.0 degrees F Very mild No source of infection Continue to trend PRN tylenol (3) Hyponatremia: Code(s): E87.1 - Hypo-osmolality and hyponatremia Status: Acute Assessment and Plan: Na was 125 upon arrival Current sodium is 130 Could be related to water intoxication Continue to trend labs (4) Leukopenia: Qualifiers: Leukopenia type: lymphocytopenia Qualified Code(s): D72.810 - Lymphocytopenia Code(s): D72.819 - Decreased white blood cell count, unspecified Status: Acute Assessment and Plan: Current WBC 1.7 Continue to trend Could be related to supratherapeutic thyroid Received ceftriaxone in the ED (5) Transaminitis: Code(s): R74.01 - Elevation of levels of liver transaminase levels Status: Acute Assessment and Plan: Liver enzymes elevated trending down Could be related to thyroid Continue to trend Consider hep panel Consider RUQ ultrasound (6) Urinary tract infection due to Proteus: Code(s): N39.0 - Urinary tract infection, site not specified; B96.4 - Proteus (mirabilis) (morganii) as the cause of diseases classified elsewhere Status: Acute Assessment and Plan: Was treated with Bactrim Susceptibilities does show Bactrim Probably treated Currently on ceftriaxone Can probably stop since she is not having any further symptioms. (7) Hypothyroidism: Code(s): E03.9 - Hypothyroidism, unspecified Status: Acute Assessment and Plan: TSH 0.222, T3 0.77, T4 0.99 Continue to hold levothyroxine for now Have patient get repeat in 2 weeks Adjust therapy as indicated Repeat labs in the am Plan Spoke with Dr. Leon about patient and chart was further reviewed Time Spent With Patient Time: 51 mintues Time with patient: Greater than 35 minutes Subjective Date/time seen: 08/25/22914 Interval history: 08/25/22914 patient was resting comfortably in bed. She denies any current chest pain, shortness a breath, nausea, vomiting, diarrhea or constipation. She also denies any current palpitations or any acute events overnight. She does state that she is lightheaded and dizzy and weak. She is wanting to go home however review the case with my attending who suggested repeating labs in a.m. and obtain an echo. Family was present and all questions were answered plan of care was updated. 08/24/22? 20:19 56-year-old female with a past medical history of postmenopausal state, hypothyroidism and recent diagnosis of UTI who presented to the ER from urgent care via EMS due to SVT.? The patient reports that back in July she was treated for UTI.? She does not know what antibiotic she was placed on but on review of external med rec the appears patient was placed on nitrofurantoin.? Her symptoms had resolved but then recurred and she went to urgent care on 08/19/2022.? She was having symptoms with suprapubic pain, dysuria, frequency, urgency and hematuria.? She was discharged home on Bactrim which she has been taking faithfully.? She reported that her symptoms had improved until today.? When she woke up in got out of bed she noticed that she was tachycardic and felt lightheaded and flushed.? She was also having some mid dizziness.? She went to wor
[2022-08-25 10:22] LABS: Sodium 131 mmol/L (137-145)
[2022-08-25 11:15] LABS: Free T4 Free Thyroxine 0.99 ng/mL (0.78-2.19)
[2022-08-25] MEDS: ACETAMINOPHEN 325 MG TABLET 650 MG PO (12:37)
[2022-08-25 13:08] LABS: Sodium 133 mmol/L (137-145)
[2022-08-25 18:06] LABS: Sodium 132 mmol/L (137-145)
[2022-08-25] MEDS: HYDROcodone/acetaminophen (*CRX) 5-325 MG TABLET 1 TAB PO (20:46)
[2022-08-25 21:56] LABS: Sodium 132 mmol/L (137-145)
[2022-08-26] VITALS: PULSE 71
[2022-08-26 03:04] LABS: Sodium 137 mmol/L (137-145)
[2022-08-26 04:00] VITALS: PULSE 79
[2022-08-26 05:45] LABS: Basophils Percent Auto 0.4 % (0.2-1.2); Eosinophils Absolute Auto 0.4 K/mm3 (0-0.3); Eosinophils Percent Auto 14.9 % (0-4.4); Hematocrit 38.1 % (37.0-47.0); Hemoglobin 12.5 g/dL (12.0-15.0); Immature Granulocyte Absolute 0.01 K/mm3 (0.00-0.031); Immature Granulocyte Percent A 0.4 % (0-0.5); Lymphocytes Absolute Auto 0.61 K/mm3 (0.9-3.2); Lymphocytes Percent Auto 24.6 % (18.3-44.2); Mean Corpuscular HGB Conc 32.8 g/dl (32-36); Mean Corpuscular Hemoglobin 27.7 pg (26-34); Mean Corpuscular Volume 84.5 fl (80-100); Mean Platelet Volume 10.3 fl (7.4-10.4); Monocytes Absolute Auto 0.2 K/mm3 (0.1-0.6); Monocytes Percent Auto 6.5 % (2.6-8.5); Neutrophils Absolute Auto 1.3 K/mm3 (1.3-6.7); Neutrophils Percent Auto 53.2 % (45.5-73.1); Platelet Count Result 127 k/mm3 (150-375); Red Blood Count 4.51 M/mm3 (4.2-5.4); Red Cell Distribution Width 13.5 % (11.5-14.5); White Blood Count 2.5 K/mm3 (4.5-10.0)
[2022-08-26 05:50] VITALS: BP 100/57; PULSE 85; RESP 20; TEMP 36.6; O2SAT 97
[2022-08-26 06:10] LABS: Alanine Aminotransferase 69 U/L (6-35); Albumin Level 3.3 g/dL (3.5-5.1); Alkaline Phosphatase 125 U/L (38-126); Anion Gap 6 mmol/L (8-16); Aspartate Amino Transferase 65 U/L (14-36); Bilirubin,Total 0.5 mg/dL (0.2-1.3); Blood Urea Nitrogen 9 mg/dL (7-17); Calcium 7.9 mg/dL (8.4-10.2); Carbon Dioxide 28 mmol/L (22-30); Chloride 101 mmol/L (98-107); Estimated CRCL calculation 83 ml/min; Estimated Glomerular Filt Rate > 60; Glucose 103 mg/dL (65-110); Magnesium 1.9 mg/dL (1.6-2.3); Potassium 3.6 mmol/L (3.4-5.0); Sodium 135 mmol/L (137-145)
[2022-08-26 06:22] LABS: Free T4 Free Thyroxine 0.95 ng/mL (0.78-2.19)
[2022-08-26 08:00] VITALS: PULSE 85; RESP 20; O2SAT 97
[2022-08-26] MEDS: diphenhydrAMINE HCl INJ 50 MG/ML VIAL IV PUSH (08:07)
--- NOTE | 2022-08-26 09:15 | PM.DS ---
DS: Admitting Diagnosis Discharge Date 08/26/22 0915 Admitting Diagnosis SVT, hyponatremia, leukocytopenia DS: Summary Hospital Course Hospital Course: patient is a 56-year-old female with past medical history of hypothyroidism a UTI presented to the ED with complaints SVT. Patient was found to have a UTI in July, and was initially started on Macrobid. UTI did not resolve and urine culture was grew Proteus. At that time she was changed to Bactrim. After 5 days of Bactrim, she was noted to not feeling the best. She presented to the urgent care, when she was evaluated it was noted that her heart rate was in the 180-190s. EKG in the ambulance was noted to be in SVT, and patient was given 2 doses of adenosine, and did convert to SR in the 90s. She did have another episode in the ED, and was able to convert on her own. She did not have any further episodes since admission. Initial labs TSH 0.222, T4 0.99, T3 0.77. WBC did drop as low as 1.7. Bactrim was stopped and patient was continued on ceftriaxone. After receiving ceftriaxone she did develop a pretty severe rash and Benadryl was given. Eosinophils were elevated confirming a most like allergic reaction. Sodium is back to normal today at 135. CT of the abd/pel was obtained to assess for possible infection and found constipation. Currently TSH is back to normal at 1.840, T4 0.95, and T3 . Currently patient denies any chest pain, shortness of breath, nausea, vomiting, diarrhea, or constipation. She is stable for discharge per labs and vital signs. She will need to follow up with her primary in one week. Status at Discharge Functional status at discharge: independent ambulation Overall status at discharge: patient is progressing back to baseline Time Spent with Patient Time attestation: Total time spent providing and/or coordinating discharge services: 48 minutes Time spent: Greater than 30 minutes Specific discharge activities: Diagnostic testing, chart review, developing a treatment plan, education, care coordination documentation, physical exam, result review Exam Narrative: General: well-nourished, well-appearing 56-year-old female, sitting up in bed, comfortable, NARD Neuro: awake, alert and oriented x4, speech clear, no focal neuro deficits noted HEENMT: normocephalic, atraumatic, EOMI, sclerae anicteric, moist oral mucosa Respiratory: Clear to auscultation bilaterally without crackles, rhonchi or wheezes, nonlabored breathing Cardio: regular rate, regular rhythm with S1-S2 Abdomen: nondistended, normoactive bowel sounds, soft, nontender to palpation Extremities: no edema, erythema, or tenderness to palpation, DP pulses 2+ bilaterally Skin: no rashes or lesions, warm and dry Psych: appropriate mood and affect, judgment and insight intact DS: Data Data Completed and Pending Labs on day of discharge: Labs from last 24 hours 08/26/22 08/26/22 08/26/22 05:35 05:35 05:35 WBC 2.5 L RBC 4.51 Hgb 12.5 Hct 38.1 MCV 84.5 MCH 27.7 MCHC 32.8 RDW 13.5 Plt Count 127 L MPV 10.3 Immature Gran % (Auto) 0.4 Neut % (Auto) 53.2 Lymph % (Auto) 24.6 Nicholas % (Auto) 6.5 Eos % (Auto) 14.9 H Baso % (Auto) 0.4 Lymph # (Auto) 0.61 L Nicholas # (Auto) 0.2 Eos # (Auto) 0.4 H Baso # (Auto) 0.0 Abs Immat Gran (auto) 0.01 Absolute Neuts (auto) 1.3 Absolute Nucleated RBC 0.0 Nucleated RBC % 0.0 Sodium 135 L Potassium 3.6 Chloride 101 Carbon Dioxide 28 Anion Gap 6 L BUN 9 Creatinine 0.70 Estim Creat Clear Calc 83 Estimated GFR > 60 Glucose 103 Calcium 7.9 L Magnesium 1.9 Total Bilirubin 0.5 AST 65 H ALT 69 H Alkaline Phosphatase 125 Total Protein 6.0 L Albumin 3.3 L TSH (Reflex) Free T4 Free T3 pg/mL Pending 08/26/22 08/26/22 08/25/22 05:35 02:40 21:38 WBC RBC Hgb Hct MCV MCH MCHC RDW Plt Count MPV Lory
[2022-09-08 10:50] LABS: T3 Free 2.4 pg/mL
== END 2022-08-26 12:30 | disposition home or self-care (01) ==
LOC: ANHED 19:43 → ANH3MED 08-26 08:59
PROVIDERS: Nurse Practitioner; Admitting Provider Internal Medicine; Emergency Provider Emergency Medicine; PCP Internal Medicine; Visit Provider Family Medicine
DX: I47.1 Supraventricular tachycardia (principal); R50.9 Fever, unspecified; E87.1 Hypo-osmolality and hyponatremia; D72.810 Lymphocytopenia; R74.01 Elevation of levels of liver transaminase levels; N39.0 Urinary tract infection, site not specified; E03.9 Hypothyroidism, unspecified; I48.91 Unspecified atrial fibrillation; Z20.822 Contact with and (suspected) exposure to COVID-19; K59.00 Constipation, unspecified; R00.2 Palpitations; I51.89 Other ill-defined heart diseases; R94.31 Abnormal electrocardiogram [ECG] [EKG]; Z90.49 Acquired absence of other specified parts of digestive tract; I27.20 Pulmonary hypertension, unspecified; Z79.890 Hormone replacement therapy; F10.90 Alcohol use, unspecified, uncomplicated; Z85.43 Personal history of malignant neoplasm of ovary; Z87.898 Personal history of other specified conditions; Z79.899 Other long term (current) drug therapy
CPT/HCPCS: 36415; 71045; 74177; 80053; 81003; 82570; 83605; 83735; 83880; 84100; 84295; 84300; 84439; 84443; 84480; 84484; 85025; 87040; 87637; 93005; 93306; 96361; 96365; 96367; 96374; 96375; 99285; A9270; G0378; J0131; J0696; J1200; J2405; J7030; Q9967

== ENCOUNTER → 2022-10-24 15:10 | Outpatient (CLI) | payer OTHER, SELFPAY ==
--- NOTE | ~2022-10-24 | US_ITS ---
EXAMINATION: US pelvic complete w TV DATE: 10/24/2022 15:54 INDICATION: Recurrent UTIs. History of ovarian cancer. Comparison:No prior studies for comparison. TECHNIQUE: Multiple transabdominal and endovaginal sonographic images of the pelvis performed. FINDINGS: The uterus and ovaries are surgically absent. No abnormal pelvic masses or fluid collection s. There is no free fluid in the pelvis. There are no abnormal masses seen on either side. IMPRESSION: 1. Unremarkable pelvic ultrasound status post total hysterectomy. Reviewed, dictated and finalized at location []
== END ==
PROVIDERS: PCP Internal Medicine; Visit Provider Internal Medicine
DX: N39.0 Urinary tract infection, site not specified (principal)
CPT/HCPCS: 76830; 76856

== ENCOUNTER 2022-11-11 12:24 | Emergency (ER) | payer OTHER, SELFPAY ==
[2022-11-11 12:39] VITALS: BP 127/86; PULSE 71; RESP 16; TEMP 36.3; O2SAT 100
--- NOTE | 2022-11-11 12:48 | ED.FEMALEGU ---
HPI - Female Genitourinary General Chief complaint: Urogenital-Female Stated complaint: UTI SYMPTOMS Time Seen by Provider: 11/11/22 12:40 Source: patient, RN notes reviewed and old records reviewed Mode of arrival: ambulatory Limitations: no limitations History of Present Illness HPI Narrative: 57 year old female who present to express care with complaints of pain with burning with urination with frequency and urgency for the past 2 days. Patient reports that she has been traveling and gets frequent UTI's when traveling. Patient has numerous allergies and was treated with Bactrim and developed SVT. Her PCP treated her last with one time dose of FosFomycin 3gms and it was effective to resolve her UTI. Patient denies any known fevers,chills or sweats or any CVA tenderness. Patient denies any vaginal discharge or itching. MD elicited complaint: UTI Pertinent past history: recurrent UTIs Onset (ago): day(s) (2) Location of symptoms: perineum Severity scale (1-10): 3 Related Data Home Medications Medication Instructions Recorded Confirmed Adults Multivitamin 1 tablet PO DAILY 06/03/21 08/24/22 estradiol 1 mg tablet 0.05 mg PO DAILY 06/03/21 08/24/22 levothyroxine 25 mcg tablet 25 mcg PO DAILY 06/03/21 08/24/22 Allergies Allergy/AdvReac Type Severity Reaction Status Date / Time ceftriaxone Allergy Severe Rash Verified 11/11/22 12:55 morphine Allergy Hives Verified 11/11/22 12:55 Penicillins Allergy Rash Verified 11/11/22 12:55 sulfamethoxazole AdvReac Severe SVT Verified 11/11/22 12:55 [From Bactrim] trimethoprim [From Bactrim] AdvReac Severe SVT Verified 11/11/22 12:55 Review of Systems Review of Systems: CONSTITUTIONAL: Denies fever, chills, or sweats. CARDIOVASCULAR: Denies chest pain, palpitations, or edema. RESPIRATORY: Denies cough or dyspnea. GASTROINTESTINAL: Denies abdominal pain, nausea, vomiting, or diarrhea. GENITOURINARY: Reports dysuria, frequency, urgency. Denies flank pain or visible hematuria. SKIN: Denies rash or itching. MUSCULOSKELETAL: Denies back pain or myalgia. Denies CVA tenderness NEUROLOGIC: Denies headache All systems reviewed & are unremarkable except as noted in HPI and below PMFSH Past Medical History Medical History (Updated 11/13/22 @ 07:13 by Fior Gaitan NP) Colon cancer screening Hypothyroidism Ovarian cancer (~2000) UTI (urinary tract infection) Surgical History Surgical History (Updated 08/24/22 @ 23:12 by Evelyn Dykes DO) History of intestinal surgery colectomy related to ovarian cancer adhesions and tortuous colon History of total hysterectomy with bilateral salpingo-oophorectomy (BSO) (2000) Hx of cholecystectomy Family History Family History (Updated 08/24/22 @ 23:05 by Evelyn Dykes DO) Mother Healthy adult Father of unknown cause Sibling Suicide Social History Social History (Updated 08/24/22 @ 23:07 by Evelyn Dykes DO) Social History: She in her have been together since the mid . They live in [place]. She does not have any children. 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 She drinks 2-3 alcoholic beverages over the course of the weekend. She denies any history of tobacco use or illicit substance use. Code status: Full code (however she would not want long-term ventilatory support, tracheostomy or PEG tube) Healthcare power of claims attorney: Madeleine Green () Smoking status: Never smoker Alcohol intake: current Drinks per week: 3 Substance use: never Substance use type: does not use Lack of Transportation: No Lack of Food: Never True Current Housing: I Have Housing Concerned About Future Housing: No Difficulty Paying Gas/Electric Bills: No Difficulty Paying for Meds: No Currently Unemployed: No Education: Master's Degree or Higher Difficulty w/ Childcare or Family Care: No Living arrangements: with family Gender identi
== END 2022-11-11 13:10 | disposition home or self-care (01) ==
PROVIDERS: Emergency Provider Registered Nurse; PCP Internal Medicine
DX: N39.0 Urinary tract infection, site not specified (principal); E03.9 Hypothyroidism, unspecified; Z85.43 Personal history of malignant neoplasm of ovary
CPT/HCPCS: 81003; 87077; 87086; 87186; 99213; G0463

== ENCOUNTER 2023-10-05 10:01 | Outpatient (CLI) | payer OTHER, SELFPAY ==
--- NOTE | ~2023-10-05 | MM_ITS ---
EXAMINATION: MM screening eliza BI w kostas HISTORY: Screening mammogram TECHNIQUE: Craniocaudal and mediolateral oblique 3-D tomosynthesis images were obtained and synthetic 2-D images were generated. CAD analysis was submitted and interpreted. COMPARISON: 07/16/2021 bilateral screening mammogram BREAST PARENCHYMAL COMPOSITION: The breasts are almost entirely fatty. FINDINGS: There is no evidence of suspicious mass, calcification, or architectural distortion to sugg est malignancy in either breast. There has been no suspicious interval change. IMPRESSION: 1. No mammographic evidence of malignancy. 2. Recommend routine screening mammography in one year. BI-RADS Category 1: Negative Reviewed, dictated and finalized at location B.
== END 2023-10-05 10:02 ==
LOC: MICIMG 10:01
PROVIDERS: PCP Internal Medicine; Visit Provider Internal Medicine
DX: Z12.31 Encounter for screening mammogram for malignant neoplasm of breast (principal)
CPT/HCPCS: 77063; 77067